=== PATIENT | male | born 1970 | race Caucasian/White ===

== ENCOUNTER 2019-09-27 09:30 | Outpatient (CLI) | payer OTHER, SELFPAY ==
--- NOTE | ~2019-09-27 | CT_ITS ---
EXAMINATION: CT soft tissue neck w con EXAM DATE: 09/27/2019 10:28 INDICATION: Localized superficial swelling. TECHNIQUE: Spiral CT of the neck was performed following intravenous injection of 75 mL Omnipaque 350 . Axial, coronal and sagittal images were reviewed. The dose-length product (DLP) for this examinat ion was 737.91 mGy-cm. The exposure was tailored according to patient size (auto mA exposure control ), and iterative reconstruction (ASIR) was used as additional dose reduction technique. There is no prior study for comparison. FINDINGS: There is enlarged relatively low density left lower paratracheal lymph node measuring 2.9 x 2.0 cm and right paratracheal lymph node measuring 2.3 x 1.6 cm. Calcified right hilar granulomata. Could be granulomatous process given the multiple scattered lung calcifications, granulomas. Infectio n, granulomatous process and cancer (metastatic disease or lymphoma) are the most common causes of ly mphadenopathy. The thyroid gland is unremarkable. The submandibular and parotid glands are symmetric. There is n o cervical lymphadenopathy. The airway is unremarkable. Parapharyngeal and pre-glottic fat planes are preserved. The opacified vasculature is patent. The orbits are unremarkable. Visualized si nuses and mastoid air cells are well aerated. There is cervical spondylosis. IMPRESSION: 1. Paratracheal low density lymphadenopathy, could be granulomatous process given relatively low den sity and other scattered right hilar, lung parenchymal granulomata. Lymphoma or other malignancy are also possible. Does patient have any known history of sarcoidosis, fungal or mycobacterial infection? 2. No cervical lymphadenopathy or mass amenable for biopsy. Reviewed, dictated and finalized at location A. IMPRESSION: 1. Paratracheal low density lymphadenopathy, could be granulomatous process gi chelita relatively low density and other scattered right hilar, lung parenchymal gr anulomata. Lymphoma or other malignancy are also possible. Does patient have an y known history of sarcoidosis, fungal or mycobacterial infection? 2. No cervical lymphadenopathy or mass amenable for biopsy.
== END 2019-09-27 09:31 | disposition home or self-care (01) ==
PROVIDERS: PCP Family Medicine; Visit Provider Family Medicine
DX: R59.0 Localized enlarged lymph nodes (principal)
CPT/HCPCS: 70491; Q9967

== ENCOUNTER 2019-10-15 08:19 | Outpatient (CLI) | payer OTHER, SELFPAY ==
--- NOTE | ~2019-10-15 | CT_ITS ---
EXAMINATION: CT chest abdomen pelvis w con DATE: 10/15/2019 09:10 INDICATION: Lymphadenopathy of head and neck region. TECHNIQUE: Computed tomography (CT) of the chest, abdomen, and pelvis was performed with 100 mL Omnip aque 350 intravenous contrast. Automated exposure control and iterative reconstruction technique were employed. The dose-length product was 1376.24 mGy-cm. COMPARISON: Neck CT 09/27/2019, CT abdomen and pelvis 02/17/2007, cervical spine CT 04/07/2006 FINDINGS: CHEST CT: Calcified pulmonary nodules and calcified hilar and mediastinal lymph nodes are consistent with old g ranulomatous disease. There are noncalcified mediastinal lymph nodes measuring up to 2.9 x 2.0 cm. Th e heart size is normal. No pericardial effusion. There is a small sliding hiatal hernia. ABDOMEN/PELVIS CT: The liver, gallbladder, spleen, pancreas, adrenal glands, and right kidney are normal. There are cyst s in left kidney measuring up to 4 mm. There is fat stranding at the root of the small bowel mesenter y, likely edema or inflammation (mesenteric panniculitis). There are no dilated loops of bowel. The a ppendix is normal. There are no pathologically enlarged lymph nodes. There is no free intraperitoneal fluid. There are plugs from bilateral inguinal hernia repairs. There is mild thoracolumbar spondylos is. IMPRESSION: 1. Mild mediastinal lymphadenopathy, most likely reactive. Reviewed, dictated and finalized at location A.
[2019-10-15 09:01] LABS: Hematocrit 46.4 % (42.0-52.0); Hemoglobin 15.6 g/dL (14.0-18.0); Mean Corpuscular HGB Conc 33.6 g/dl (32-36); Mean Corpuscular Hemoglobin 29.3 pg (26-34); Mean Corpuscular Volume 87.2 fl (80-100); Mean Platelet Volume 9.4 fl (7.4-10.4); Platelet Count Result 286 k/mm3 (150-375); Red Blood Count 5.32 M/mm3 (4.6-6.20); Red Cell Distribution Width 12.6 % (11.5-14.5); White Blood Count 8.9 K/mm3 (4.5-10.0)
== END 2019-10-15 08:20 | disposition home or self-care (01) ==
PROVIDERS: PCP Family Medicine; Visit Provider Family Medicine
DX: R59.0 Localized enlarged lymph nodes (principal)
CPT/HCPCS: 36415; 71260; 74177; 85027; 99212; G0463; Q9967

== ENCOUNTER → 2020-12-25 01:32 | Outpatient (CLI) | payer OTHER, SELFPAY ==
[2020-12-26 01:36] LABS: SARS-CoV-2 RNA PCR Negative
== END ==
PROVIDERS: PCP Family Medicine; Visit Provider Surgery
DX: Z01.812 Encounter for preprocedural laboratory examination (principal); Z20.822 Contact with and (suspected) exposure to COVID-19
CPT/HCPCS: C9803; U0003; U0005

== ENCOUNTER 2020-12-28 01:48 | Day surgery (SDC) | payer OTHER, SELFPAY ==
[2020-12-22 17:51] VITALS: BMI 32.3
--- NOTE | 2020-12-27 13:00 | P.PNAN_ITS ---
Anes - Initial Pre Proc Eval Procedure: Operation Date: 12/28/20 14:00 Proposed Procedures p Excision of Recently Infected Epidermal Cyst on Back - Warren Blackman MD Date/Time: 12/27/20 13:00 Surgeon: Warren Blackman MD Pre Op Diagnosis: Infected Epidermal Cyst Patient Data Age: 50 Gender: M Height: 1.8 m Weight: 105 kg Allergies Allergy/AdvReac Type Severity Reaction Status Date / Time No Known Allergies Allergy Verified 11/11/20 15:13 Home Medications Medication Instructions Recorded Confirmed Type omeprazole 20 mg capsule,delayed 20 mg PO DAILY 10/28/20 12/22/20 History release Patient hx anesthesia problems: none Family hx anesthesia problems: none [facility] Past Medical History Medical History (Updated 12/28/20 @ 12:09 by Warren Blackman MD) GERD (gastroesophageal reflux disease) Obesity (BMI 30.0-34.9) Prediabetes Surgical History Surgical History Hx of left inguinal hernia repair Open repair with mesh 2000 at [facility] Hx of right inguinal hernia repair Open repair with mesh 2001 [facility] Family History Family History Mother Diabetes mellitus Family history of cardiovascular disease Cerebrovascular accident Grandparent Family history of glaucoma Carcinoma of colon Family history of lung cancer Father Diabetes mellitus Family history of cardiovascular disease Cerebrovascular accident Social History Social History Smoking status: Never smoker Alcohol intake: never Substance use: never Living arrangements: with family 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 Gender identity (if verbalized by the patient): Male Sexual Orientation (if Verbalized by the Patient): Straight or Heterosexual Spiritual care concerns: No Anes - Eval Final PreProcedure Day of Procedure 12/27/20 13:00 Patient weight: obese Heart: regular rate and rhythm Lungs: clear to auscultation and normal air movement Airway: Mallampati scale class II Neurological: alert and oriented Last oral intake: >/= 8 hours ASA classification: III Emergent: no Anesthetic plan: proceed Anesthesia type and monitoring: general GIVS Informed Consent: The patient's anesthetic plan and its attendant risks and benefits were discussed with the patient/family/POA. Questions were solicited and answers provided to the satisfaction of the patient/family/POA.
--- NOTE | 2020-12-28 12:00 | PM.HPGS ---
History of Present Illness History of Present Illness Consent: Risks, benefits, and alternatives of excision of a recently infected epidermal cysthave been discussed and questions answered. Patient agrees to proceed with procedure. Chief complaint: Infected Epidermal Cyst Narrative: Jesús Daniels is a 50 year old male who returns for another follow-up of an infected epidermal cyst. I recommended to have an I&D the last two appointments but patient did not want to proceed with this. Patient reports that he is doing well. He reports that he is getting very minimal drainage out in just one spot that was previously draining and otherwise no drainage the last 20 or more days. He reports he has finished the Augmenin 3 days prior to his last office visit which was in late November.. Denies any fevers. In the interim he has had no significant drainage or change in the skin lesion that would make us want to cancel his surgery. After thorough discussion the risks benefits possible complications of excision of the fairly large epidermal cyst under local anesthetic with MAC or GIVS have been described and patient wishes to proceed. Patient has not had the COVID 19 vaccine. He reports he tested positive for COVID 19 in December 2019 Review of Systems Constitutional: Constitutional: Reports no additional constitutional complaints, Reports fatigue and Denies malaise Eyes: Eyes: Denies change in vision and Denies loss of vision ENT: Reports Normal hearing present, Denies change in voice, Denies dizziness, Denies hoarseness and Denies sore throat Cardiovascular: Cardiovascular: Denies chest pain, Denies leg edema and Denies dyspnea Respiratory: Respiratory: Denies cough, Denies dyspnea and Denies wheezing Gastrointestinal: Gastrointestinal: Denies hematochezia, Denies change in bowel habits and Denies heartburn Comments: History of GERD fairly well controlled with OTC Prilosec. obesity BMI 32 Genitourinary: Genitourinary: Denies urinary frequency and Denies urinary incontinence Neurologic: Reports Normal hearing present, Denies confusion, Denies dizziness, Denies loss of vision, Denies memory loss and Denies seizure-like activity Psychiatric: Psychiatric: Denies confusion, Denies depression and Denies memory loss Endocrine: Endocrine: Denies cold intolerance and Reports fatigue Comments: patient has a history of pre-diabetes. Hematologic/Lymphatic: Hematologic/Lymphatic: Denies easy bleeding and Denies easy bruising Allergic/Immunologic: Allergic/Immunologic: Denies wheezing PMFSH Past Medical History Medical History (Updated 12/28/20 @ 12:09 by Warren Blackman MD) GERD (gastroesophageal reflux disease) Obesity (BMI 30.0-34.9) Prediabetes Surgical History Surgical History Hx of left inguinal hernia repair Open repair with mesh 2000 at [facility] Hx of right inguinal hernia repair Open repair with mesh 2001 [facility] Family History Family History Mother Diabetes mellitus Family history of cardiovascular disease Cerebrovascular accident Grandparent Family history of glaucoma Carcinoma of colon Family history of lung cancer Father Diabetes mellitus Family history of cardiovascular disease Cerebrovascular accident Social History Social History Smoking status: Never smoker Alcohol intake: never Substance use: never Living arrangements: with family Additional occupation/education comments: Music Therapist Gender identity (if verbalized by the patient): Male Sexual Orientation (if Verbalized by the Patient): Straight or Heterosexual Spiritual care concerns: No Meds Home Medications and Allergies Home Medications Medication Instructions Recorded Confirmed Type omeprazole 20 mg capsule,delayed 20 mg PO DAILY 10/28/20 12/22/20 Hist
[2020-12-28 12:41] VITALS: BP 140/96; PULSE 108; RESP 16; TEMP 37.2; O2SAT 99
[2020-12-28] MEDS: LACTATED RINGERS 1,000 ML 30 ML IV CONT ×2 (12:42→15:29)
--- NOTE | 2020-12-28 12:43 | WPDHPUPDATE1 ---
History and Physical Update Update Date/Time: 12/28/20 12:43 History and Physical has been reviewed, including an updated exam of the patient. There are NO changes in the patient's condition. Risks, benefits, and alternatives have been discussed and questions answered. Patient agrees to proceed with procedure.
[2020-12-28] MEDS: ceFAZolin 2 GM/D5W 50 ML 2 GM/50 ML BAG IVPB (14:39)
[2020-12-28] MEDS: LIDO 1%/EPINEPHRINE 1:100,000 20 ML VIAL INFILTRATE (15:09)
[2020-12-28 15:49] VITALS: BP 129/70; PULSE 110; RESP 16; O2SAT 93
--- NOTE | 2020-12-28 15:51 | P.OP_ITS ---
Procedure Note - Detailed Date of Procedure 12/28/20 Pre-op Diagnosis Reently infected Epidermal Cyst Post-op Diagnosis same Procedure Performed Excision of skin lesion (4 X 2 cm) Mid Thoracic back Surgeon Warren Blackman MD Topographical Field Assistant Сергей FRANCOIS, OR 1st assist Anesthesia MAC and local (2% xylocaine with epinephrine) Indications Patient has some a 2-3 times in the office with a infected draining epidermal cyst on his mid back. It came to a head and drain on its own. I some more than a month ago when it had healed after draining in taking antibiotics. This was a good time for him to be off work to come and have this excised so that it would not recur. Prevention of recurrence of infection is the main indication for proceeding to excision. Findings A thick flat scarred area of subcutaneous tissue underneath the site where his previous epidermal cyst had been present. This was in a fairly long wide area almost directly over the spinous processes about T6 level. Description of Procedure The patient was placed in the left lateral decubitus position. Anesthesia administered monitored anesthesia care IV sedation. Patient received 2 g of Ancef preoperatively. After a surgical time out confirming patient and procedure the patient was prepped and draped in the usual sterile fashion. Local anesthetic was administered subcutaneously and subsequently deep to the lesion. The lesion measured 4 x 2 cm. An elliptical incision was made around the lesion taking a thin margin circumferentially. I dissected down to the deep subcutaneous tissues and then completely excised the lesion. It appeared on the left side of the excision we may have entered some scar tissue related to the cyst and I went a little bit wider but otherwise it appeared that we got completely around the abnormality. Bleeding was controlled with electrocautery. The wound was closed in two layers. An un-dyed 2-0 Vicryl deep dermal and then a 4-0 undyed Vicryl running subcuticular closure was completed. Surgical glue applied as dressing. Patient tolerated this well. Implants None Estimated Blood Loss -7.0 Drains No Packing No Pathology yes (Skin and subcutaneous tissue sent for pathology(4 x 2 cm ellipse of skin with underlying subcutaneous tissue)) Complications No immediate complications Condition stable Disposition same day
--- NOTE | 2020-12-28 15:52 | SUR.PHASEII ---
CORRECTION: CHARTING AT 1549 IS FOR 1529.
[2020-12-28 15:55] VITALS: BP 140/73; PULSE 102; RESP 16; O2SAT 94
== END 2020-12-28 16:12 | disposition home or self-care (01) ==
PROVIDERS: PCP Family Medicine; Visit Provider Surgery
PROC: (CPT 11404; principal; 2020-12-28 14:00)
DX: L72.0 Epidermal cyst (principal); L08.9 Local infection of the skin and subcutaneous tissue, unspecified; K21.9 Gastro-esophageal reflux disease without esophagitis; E66.9 Obesity, unspecified; Z68.32 Body mass index [BMI] 32.0-32.9, adult; Z79.899 Other long term (current) drug therapy
CPT/HCPCS: 11404; 12032; 88304; C9803; J0690; J1100; J2250; J2405; J2704; J3010; J7120; U0003; U0005

== ENCOUNTER 2021-05-19 15:58 | Emergency (ER) | payer OTHER, SELFPAY ==
[2021-05-19 16:14] VITALS: BP 143/94; PULSE 95; RESP 18; TEMP 36.9; O2SAT 98
--- NOTE | 2021-05-19 16:24 | ED.URI ---
HPI - URI/Sore Throat General Chief Complaint: Upper Respiratory Infection Stated Complaint: sorethroat Time Seen by Provider: 05/19/21 16:24 Source: patient Mode of arrival: ambulatory Limitations: no limitations History of Present Illness HPI Narrative: Jesús Daniels is a 50 yo male with a PMH of GERD who comes with a sore throat that started around Leeanna time when his kids had strep throat and he was given amoxicillin by his doctor and seemed to improve but has gradually started to reappear. All people at his job have had COVID he is from these individuals and his kids have been tested for COVID and his at her job must take a COVID test every week and she has been negative. Discussed with patient his elevation in blood pressure which may be partially whitecoat syndrome but he will keep a log of his blood pressure, discussed diet and exercise- call pcp if remains up Related Data Home Medications Medication Instructions Recorded Confirmed omeprazole 20 mg capsule,delayed 20 mg PO DAILY 10/28/20 05/19/21 release Allergies Allergy/AdvReac Type Severity Reaction Status Date / Time No Known Allergies Allergy Verified 05/19/21 16:21 Review of Systems Review of Systems: CONSTITUTIONAL: Denies fever, chills, sweats. EYES: Denies visual changes, redness, discharge. ENT: Denies rhinorrhea, as congestion, has sore throat, right eustachian tube pain otalgia. CARDIOVASCULAR: Denies chest pain, palpitations, edema. RESPIRATORY: Denies dyspnea, wheezing, cough GASTROINTESTINAL: Denies abdominal pain, nausea, vomiting, diarrhea. GENITOURINARY: Denies dysuria, hematuria, abnormal discharge SKIN: Denies rash or itching. NEUROLOGIC: Denies numbness, or focal weakness. PSYCHIATRIC: Denies anxiety or depression. [facility] Past Medical History Medical History GERD (gastroesophageal reflux disease) Obesity (BMI 30.0-34.9) (Unknown) Prediabetes Surgical History Surgical History History of excision of epidermal inclusion cyst 12/28/20 Hx of left inguinal hernia repair Open repair with mesh 2000 at [facility] Hx of right inguinal hernia repair Open repair with mesh 2001 [facility] Family History Family History Mother Diabetes mellitus Family history of cardiovascular disease Cerebrovascular accident Grandparent Family history of glaucoma Carcinoma of colon Family history of lung cancer Father Diabetes mellitus Family history of cardiovascular disease Cerebrovascular accident Social History Social History Smoking status: Never smoker Alcohol intake: never Substance use: never Additional occupation/education comments: [employer] Gender identity (if verbalized by the patient): Male Sexual Orientation (if Verbalized by the Patient): Straight or Heterosexual Spiritual care concerns: No Comments At time of signature, I agree with nursing past medical, surgical, social and family history. There is no relevant family history pertinent to the presenting complaint. Exam Narrative: GENERAL: This is a well-nourished, well-developed patient, in mild distress. HEAD: normocephalic, atraumatic. EYES: PSclera clear/white. Vision is grossly intact. EARS: External ears normal, auditory canals clear and without drainage, fluid behind TMs without perforation. Hearing grossly intact. NOSE: External nose normal without nasal discharge, nares with redness, some rhinorrhea. THROAT: Mucous membranes moist, posterior pharynx erythema NECK: Neck supple, non-tender CARDIOVASCULAR: Regular rate and rhythm without murmurs, gallops, or rubs. RESPIRATORY: Clear to auscultation. Breath sounds equal bilaterally. No wheezes, rales, or rhonchi. GASTROINTESTINAL: Not done SKIN: warm, inta
== END 2021-05-19 16:53 | disposition home or self-care (01) ==
PROVIDERS: Emergency Provider Nurse Practitioner; PCP Family Medicine
DX: J32.9 Chronic sinusitis, unspecified (principal); J02.9 Acute pharyngitis, unspecified; K21.9 Gastro-esophageal reflux disease without esophagitis; R73.03 Prediabetes; E66.9 Obesity, unspecified; Z68.32 Body mass index [BMI] 32.0-32.9, adult
CPT/HCPCS: 87081; 87880; 99213; G0463

== ENCOUNTER 2021-09-22 16:47 | Outpatient (CLI) | payer OTHER, SELFPAY ==
--- NOTE | ~2021-09-22 | XR_ITS ---
XR_[id number] 09/22/2021 17:20 Indication: Cervicalgia Procedure: 4 view cervical spine Comparison: No prior studies for comparison. Findings: Vertebral body and disc heights are preserved. Lung apices are normal. No fracture, subluxa tion or dislocation. Odontoid process is normal. No prevertebral soft tissue abnormality. Impression: 1: No significant abnormality of the cervical spine. Reviewed, dictated and finalized at location B. Impression: 1: No significant abnormality of the cervical spine.
--- NOTE | ~2021-09-22 | XR_ITS ---
XR shoulder RT min 2V 09/22/2021 17:19 INDICATION: Right shoulder pain PROCEDURE: 4 views right shoulder COMPARISON: No prior studies for comparison. Both FINDINGS: Fracture, dislocation or subluxation is not identified. There are multiple calcified granul omas of the lungs The soft tissues appear within normal limits. No foreign bodies are identified. IMPRESSION: 1: NO ACUTE BONE OR JOINT ABNORMALITY IDENTIFIED. Reviewed, dictated and finalized at location B.
== END 2021-09-22 16:48 | disposition home or self-care (01) ==
PROVIDERS: PCP Family Medicine; Visit Provider Family Medicine
DX: M54.2 Cervicalgia (principal); M25.511 Pain in right shoulder
CPT/HCPCS: 72040; 73030

== ENCOUNTER 2021-10-11 08:02 | Outpatient (CLI) | payer OTHER, SELFPAY ==
[2021-10-11 08:19] LABS: Basophils Absolute Auto 0.08 K/mm3 (0.00-0.10); Basophils Percent Auto 0.8 % (0.0-1.0); Eosinophils Percent Auto 3.1 % (1.0-6.0); Hemoglobin 15.5 g/dL (14.0-18.0); Immature Granulocyte Absolute 0.06 K/mm3 (0.00-0.00); Immature Granulocyte Percent A 0.6 % (0.0-0.0); Lymphocytes Absolute Auto 3.19 K/mm3 (1.10-4.50); Mean Corpuscular HGB Conc 32.3 g/dL (32.0-36.0); Mean Corpuscular Volume 89.7 fL (78.0-102.0); Mean Platelet Volume 9.2 fl (8.7-11.0); Monocytes Absolute Auto 0.88 K/mm3 (0.10-0.90); Monocytes Percent Auto 9.1 % (2.0-11.0); Neutrophils Absolute Auto 5.2 K/mm3 (1.7-7.2); Neutrophils Percent Auto 53.4 % (50.0-70.0); Platelet Count Result 303 K/mm3 (150-420); Red Blood Count 5.35 M/mm3 (4.70-6.10); Red Cell Distribution Width 12.6 % (11.6-14.4); White Blood Count 9.7 K/mm3 (4.8-10.8)
[2021-10-11 09:26] LABS: Alanine Aminotransferase 52 U/L (16-63); Albumin Level 4.1 g/dL (3.4-5.0); Alkaline Phosphatase 89 U/L (46-116); Anion Gap 7 mmol/L (8-16); Aspartate Amino Transferase 35 U/L (15-37); Bilirubin,Total 0.4 mg/dL (0.00-1.00); Blood Urea Nitrogen 19 mg/dL (7-18); Carbon Dioxide 27 mmol/L (21-32); Chloride 103 mmol/L (98-108); Cholesterol 197 mg/dL (0-200); Estimated Glomerular Filt Rate 56; Glucose 129 mg/dL (70-99); HDL Direct 34 mg/dL (40-60); LDL Cholesterol Calculated 139 mg/dL (<130); Osmolality Calculated 288 mOsm/kg (285-295); Potassium 4.2 mmol/L (3.5-5.1); Sodium 137 mmol/L (136-145); Total Protein 8.2 g/dL (6.4-8.2); Triglycerides 119 mg/dL (0-150)
[2021-10-11 09:27] LABS: Thyroid Stimulating Hormone Reflex 1.94 u/IU/mL (0.36-3.74)
[2021-10-11 09:39] LABS: Hemoglobin A1C 5.9 % (<5.7)
== END 2021-10-11 08:03 | disposition home or self-care (01) ==
LOC: CHSLAB 08:04
PROVIDERS: PCP Family Medicine; Visit Provider Family Medicine
DX: E78.5 Hyperlipidemia, unspecified (principal)
CPT/HCPCS: 36415; 80053; 80061; 83036; 84443; 85025

== ENCOUNTER 2023-08-21 15:54 | Outpatient (CLI) | payer OTHER, SELFPAY ==
--- NOTE | ~2023-08-21 | CT_ITS ---
EXAMINATION: CT abdomen pelvis wo con DATE: 08/21/2023 16:09 INDICATION: Right lower quadrant abdominal pain. TECHNIQUE: Computed tomography (CT) of the abdomen and pelvis was performed without intravenous contr ast. Automated exposure control and iterative reconstruction technique were employed. The dose-length product was 1008.93 mGy-cm. COMPARISON: CT abdomen and pelvis 10/15/2019 FINDINGS: The visualized portions of the lung bases demonstrate calcified pulmonary nodules and calci fied hilar lymph nodes, consistent with old granulomatous disease. No pleural effusion. The heart siz e is normal. There are coronary artery calcifications. No pericardial effusion. There is a small slid ing hiatal hernia. There is diffuse hepatic steatosis. The gallbladder, spleen, pancreas, adrenal gla nds, and kidneys are normal. There is no urolithiasis. The prostate is mildly enlarged. There are no dilated loops of bowel. The appendix is normal. There are no pathologically enlarged lymph nodes. The re is chronic fat stranding at the root of the small bowel mesentery. There are changes of bilateral inguinal hernia repairs. There is no free intraperitoneal fluid. There is mild thoracic and lumbar sp ondylosis. IMPRESSION: 1. Diffuse hepatic steatosis. 2. Small sliding hiatal hernia. 3. Chronic fat stranding at the root of the small bowel mesentery, likely inflammation (mesenteric pa nniculitis) or scarring. Reviewed, dictated and finalized at location E. IMPRESSION: 1. Diffuse hepatic steatosis. 2. Small sliding hiatal hernia. 3. Chronic fat stranding at the root of the small bowel mesentery, likely infla mmation (mesenteric panniculitis) or scarring.
== END 2023-08-21 15:55 ==
PROVIDERS: PCP Family Medicine; Visit Provider Surgery
DX: K44.9 Diaphragmatic hernia without obstruction or gangrene (principal); K76.0 Fatty (change of) liver, not elsewhere classified; G89.29 Other chronic pain
CPT/HCPCS: 74176